=== PATIENT | male | born 1985 | race Two or more races ===

== ENCOUNTER 2024-01-05 17:18 | Emergency (ER) | payer OTHER ==
[2024-01-05 17:39] VITALS: BP 135/81; PULSE 97; RESP 18; TEMP 99.4; BMI 35.1
[2024-01-05] MEDS: IBUPROFEN 600 MG TABLET (FP) PO ONE (19:31)
[2024-01-05 19:43] LABS: EPI CELLS 2 /uL (0-25.1); HYALINE CASTS 0 /uL (0-3.1); PH,URINE 5.5 (5.0-8.0); URINE APPEARANCE CLOUDY; URINE BACTERIA 77 /uL (0-1359); URINE BILIRUBIN NEGATIVE (NEGATIVE); URINE COLOR YELLOW; URINE GLUCOSE (UA) NEGATIVE (NEGATIVE); URINE KETONE NEGATIVE (NEGATIVE); URINE LEUK ESTERASE 3+ (NEGATIVE); URINE NITRITE NEGATIVE (NEGATIVE); URINE PROTEIN 1+ (NEGATIVE); URINE RBC 168 /uL (0-23.9); URINE WBC 3332 /uL (0-25.8)
== END 2024-01-05 22:18 | disposition home or self-care (01) ==
LOC: JER 17:18
DX: N45.2 Orchitis (principal); N43.3 Hydrocele, unspecified; N50.811 Right testicular pain; R30.0 Dysuria; R31.9 Hematuria, unspecified
CPT/HCPCS: 36415; 76870-TC; 81003; 82962; 87086; 87491; 87591; 99284-25